=== PATIENT | male | born 1930 | race Caucasian/White ===

== ENCOUNTER 2016-09-22 10:23 | Inpatient (IN) ==
[2016-09-22] MEDS ORDERED: ZOFRAN IV PRN (12:47)
[2016-09-22] MEDS: DILAUDID IV PRN ×2 (13:38→20:24)
[2016-09-22] MEDS: NS 1,000 ML IV SCH (13:43)
--- NOTE | 2016-09-22 14:03 | Diag Imaging Result Doc PS360 ---
EXAM: FLAT/UPRIGHT ABD/1 VIEW CHEST HISTORY: abd pain TECHNIQUE: Three views COMPARISON: 06/24/2015 FINDINGS: The lungs are well expanded. No cardiomegaly. No change in the left subclavian portacatheter. No pneumonia. No pneumothorax. No free air beneath the diaphragm. There is stool throughout the colon. No organomegaly. Prior orthopedic replacement of the left hip. IMPRESSION: Constipation. Electronically signed by Alphonso Myers 09/22/2016 2:00 PM
[2016-09-22 14:25] LABS: BASO% 0.1 % (0.0-0.8); HEMATOCRIT 36.9 % (42.0-52.0); HEMOGLOBIN 12.5 g/dL (14.0-18.0); LYMPH# 0.48 X1000 (1.2-3.4); LYMPH% 3.3 % (20.5-51.1); MANUAL DIFF NEEDED? YES; MCH 34.8 PG (27-31); MCHC 33.9 g/dL (33-37); MCV 102.8 FL (81-99); MONO# 0.93 X1000 (0.11-0.59); MONO% 6.4 % (1.7-9.3); MPV 10.8 FL (7.4-10.4); NEUT% 90.2 % (42.2-75.2); PLT 260 X1000 (130-400); RBC 3.59 XMIL (4.7-6.1)
[2016-09-22 14:39] LABS: AGAP 11; ALBUMIN 4.9 g/dL (3.5-5.0); ALKALINE PHOSPHATASE 163 U/L (32-122); AMYLASE 38 U/L (20-200); BUN 17 mg/dL (8-22); CALCIUM 9.6 mg/dL (8.8-10.2); CHLORIDE 94 mmol/L (98-107); COSMO 274; GOT 35 U/L (10-34); GPT 30 U/L (10-44); LIPASE 23 U/L (13-60); POTASSIUM 4.1 mmol/L (3.5-5.1); SODIUM 135 mmol/L (136-145); TCO2 30 mmol/L (25-35); TOTAL BILIRUBIN 0.71 mg/dL (0.20-1.00); TOTAL PROTEIN 8.4 g/dL (6.3-8.3)
[2016-09-22 14:46] LABS: LYMPHS 3 % (21-51); MONO 1 % (1-9)
[2016-09-22] MEDS ORDERED: MIRALAX PO ONE (18:16)
[2016-09-22] MEDS ORDERED: DULCOLAX PO ONE ×2 (18:18→21:00)
[2016-09-22] MEDS ORDERED: SODIUM CHLORIDE 0.9% INJ SCH (18:30)
[2016-09-22] MEDS: LEVAQUIN 500 MG/D5W 500 MG/100 ML IVPB IV SCH (18:45)
[2016-09-22] MEDS: PEPCID IV SCH (18:45)
[2016-09-22 18:59] LABS: URINE CULTURE NEEDED? NO; URINE MICRO REVIEW NEEDED? NO; URINE SOURCE CATH
[2016-09-22 19:06] LABS: BILIRUBIN URINE NEGATIVE (NEGATIVE); BLOOD URINE TRACE (NEGATIVE); COLOR YELLOW; GLUCOSE URINE 150 mg/dL (NEGATIVE); LEUKOCYTES URINE NEGATIVE (NEGATIVE); NITRITE URINE NEGATIVE (NEGATIVE); PROTEIN URINE 100 mg/dL (NEGATIVE); SP GRAVITY URINE 1.016; TURBIDITY URINE CLEAR (CLEAR); UROBILINOGEN URINE NORMAL (NORMAL)
[2016-09-22 19:07] LABS: UR EPITHELIAL CELLS <10 /HPF (<10); URINE BACTERIA NEGATIVE /HPF; URINE RBC <10 /HPF (<10); URINE WBC <10 /HPF (<10)
[2016-09-22] MEDS ORDERED: APRESOLINE IV SCH (20:00)
--- NOTE | 2016-09-22 21:12 | HISTORY AND PHYSICAL ---
CHIEF COMPLAINT: Severe abdominal pain since last night. HISTORY OF PRESENT ILLNESS: He is an 85-year-old white gentleman who came to my office today with severe abdominal pain right upper quadrant associated with nausea, vomiting. He had a bowel movement yesterday. Belly exam no acute signs of peritonitis. He has been vomiting with bilious in my office. He has history of gallstones. He has been admitted to the hospital for the impending dehydration, evaluation of abdominal pain. After arrival he had a workup done. White cell count 14,000. Flat/upright of the abdomen with chest showed Port-A-Cath on the left side and distended bowel constipation. He also has a bladder scan distended. Marie was intermittent catheterization done. At this time the etiology to be determined. This could be gallstones or it could be constipation. As a result, he has been hospitalized. He was started on IV fluids, IV Zofran, Dulcolax and MiraLAX and also repeat ultrasound of the abdomen in the morning. As a result, hospital admission was warranted. PAST MEDICAL HISTORY: BPH, superficial bladder cancer, carcinoid syndrome, bronchial, metastatic, stable, diverticulosis, hypertension, hyperthyroidism, monoclonal gammopathy of unknown significance, osteoarthritis of joints, ulcerative colitis. PAST SURGICAL HISTORY: Appendectomy, left hip replacement, bilateral cataract surgery, status post TURP, right knee arthroplasty, Port-A-Cath on the left side. MEDICINES IN MY OFFICE: Celexa 20 mg daily, Proscar 5 mg daily, folic acid 1 mg daily, Icar-C Plus 1 tablet daily, Klonopin 0.5 at bedtime, lisinopril 10 mg daily, sulfasalazine 500 mg 2 tablets 3 times daily, Synthroid 100 mcg daily. ALLERGIES: Not known. SOCIAL HISTORY: , construction technician. No smoking. No alcohol. Living in [place]. FAMILY HISTORY: Father of heart failure at 70. Mom of stroke at 82. HEALTH MAINTENANCE: Flu vaccine 2015, pneumococcal 2013. Last prostate exam 2015. Colonoscopy [address] Sorenson. Care team is Dr. Robbins for carcinoid, Dr. Hussein for urology, Dr. Sorenson for GI. REVIEW OF SYSTEMS: HEENT: No headache. No vision problem. No earache. No sore throat. Neck: No goiter. No lymphadenopathy. No bruit. Cardiopulmonary: No chest pain, shortness of breath, PND, orthopnea or swelling of feet. GI: Upper abdominal pain, nausea, vomiting. No altered bowel habits. No bleeding per rectum. No diarrhea. : No history of hesitancy, frequency, dysuria, hematuria and no back pain. Neurologic: No weakness. Skin: No skin rashes. PHYSICAL EXAMINATION: VITAL SIGNS: He is afebrile, height 5 feet 7 inches, 150 pounds. Blood pressure is running high. HEENT: Atraumatic, normocephalic. Pupils equal, react to light. TMs are normal. Nose and throat within normal limits. NECK: Supple. No lymphadenopathy. No goiter. CHEST: Bilateral air entry. HEART: Sounds are regular. Port-A-Cath seen on the left side. ABDOMEN: Belly is soft, diffusely tender. No signs of peritonitis. RECTAL: Prostate is slightly enlarged. Heme-negative stool. EXTREMITIES: No peripheral edema or cyanosis. NEUROLOGIC: No obvious neurological deficits. INVESTIGATIONS: CBC: White cell count 14, hematocrit 36, platelet 260,000. SMA 7: Sodium 135, potassium 4.1, BUN 17, creatinine 0.7, glucose 144, AST slightly high, alkaline phosphatase slightly high. Total protein 8.4. Urinalysis is negative. Flat/upright of the abdomen with chest normal chest, constipation. ASSESSMENT AND PLAN: 1. An 85-year-old white gentleman presented to the hospital with upper abdominal pain, nausea, vomiting. Recently had an MRI of the abdomen that showed gallstones. Clinical picture is compatible with gallstones. Plan is IV fluids, NPO, except ice chips. Zofran, Dilaudid for pain. Repeat ultrasound of the abdomen. 2. Constipation on Dulcolax and MiraLAX. 3. Slightly elevated liver function tests and white cell count. IV antibiotics with Levaquin. 4. Hypertension. Since he is NPO, we will use IV hydralazine as needed. 5. Ulcerative colitis under the care of Dr. Sorenson on sulfasalazine. 6. Hypothyroidism on Synthroid. 7. Chronic anxiety on Klonopin. 8. History of benign prostatic hypertrophy status post transurethral resection of the prostate. Last prostate specific antigen was normal. 9. Bronchial carcinoid right upper lobe under the care of Dr. Martinez and Dr. Robbins. Recently had metastatic carcinoid syndrome. He had a Y90 radioembolization for liver metastases. 10. History of superficial bladder cancer, stable under the care of Dr. Hussein. 11. Recent workup for metastatic carcinoid syndrome is stable on 09/06/2016. Discussed the workup with the patient and and will follow up. cc: Mumtaz Luque MD
[2016-09-23] MEDS ORDERED: APRESOLINE IV PRN ×2 (00:50→07:50)
[2016-09-23] MEDS: NS 1,000 ML IV SCH ×2 (05:04→20:13)
[2016-09-23 07:05] LABS: BASO% 0.1 % (0.0-0.8); HEMATOCRIT 36.7 % (42.0-52.0); HEMOGLOBIN 12.4 g/dL (14.0-18.0); IMM GRAN# 0.09 X1000 (0.0-0.04); IMM GRAN% 0.4 % (0.0-0.5); LYMPH% 2.9 % (20.5-51.1); MANUAL DIFF NEEDED? YES; MCH 34.1 PG (27-31); MCHC 33.8 g/dL (33-37); MCV 100.8 FL (81-99); MONO# 3.56 X1000 (0.11-0.59); MONO% 17.3 % (1.7-9.3); MPV 10.9 FL (7.4-10.4); NEUT% 79.3 % (42.2-75.2); PLT 264 X1000 (130-400); RBC 3.64 XMIL (4.7-6.1)
[2016-09-23 07:22] LABS: AGAP 13; ALBUMIN 4.1 g/dL (3.5-5.0); ALKALINE PHOSPHATASE 127 U/L (32-122); BUN 18 mg/dL (8-22); CHLORIDE 97 mmol/L (98-107); COSMO 278; GOT 27 U/L (10-34); GPT 25 U/L (10-44); POTASSIUM 3.8 mmol/L (3.5-5.1); SODIUM 137 mmol/L (136-145); TCO2 27 mmol/L (25-35); TOTAL BILIRUBIN 0.95 mg/dL (0.20-1.00); TOTAL PROTEIN 7.2 g/dL (6.3-8.3)
--- NOTE | 2016-09-23 08:10 | Diag Imaging Result Doc PS360 ---
EXAM: US ABDOMEN-COMPLETE HISTORY: abdominal pain TECHNIQUE: COMPARISON: None. FINDINGS: The pancreas and distal aorta are obscured. Normal mid aorta. No focal hepatic abnormality. The gallbladder is partly contracted. No stones. The common bile duct measures 6 mm. A 2.9 cm cyst arises from the upper pole right kidney. No hydronephrosis. There is also 2.9 cm cyst in the upper pole of the left kidney. No hydronephrosis. The Spleen is not enlarged. No ascites. IMPRESSION: Scattered renal cysts, otherwise negative abdominal ultrasound. Electronically signed by Alphonso Myers 09/23/2016 8:08 AM
[2016-09-23 08:29] LABS: BANDS 6 % (0-1); LYMPHS 2 % (21-51); MONO 18 % (1-9)
--- NOTE | 2016-09-23 08:43 | Diag Imaging Result Doc PS360 ---
EXAM: ABDOMEN FLAT/UPRIGHT HISTORY: pain TECHNIQUE: COMPARISON: 09/22/2016 FINDINGS: Stool remains in the proximal and distal colon. The bowel loops are not dilated. No organomegaly. Prior orthopedic replacement of the left hip. Mild to moderate degenerative changes throughout the lumbar spine. Mild arthritic changes to the right hip. IMPRESSION: Constipation remains. Electronically signed by Alphonso Myers 09/23/2016 8:41 AM
[2016-09-23] MEDS: DILAUDID IV PRN ×2 (09:02→20:13)
[2016-09-23] MEDS: PEPCID IV SCH ×2 (09:07→20:13)
--- NOTE | 2016-09-23 10:46 | Diag Imaging Result Doc PS360 ---
CT ABD/PELVIS W/ IV CONT ONLY - 09/23/2016 INDICATION: Abdominal pain TECHNIQUE: A CT dose reduction protocol was used. COMPARISON: 09/05/2016 FINDINGS: There is some trace dependent atelectasis in the posterior costophrenic angles. There is a small amount of ascites. There has been minimal increase in size of the left adrenal mass. This now measures 2.8 cm. Stable renal cysts. Stable irregular contour of the liver particularly at the gallbladder fossa. Stable severe atrophy of the pancreatic neck. No peripancreatic collections. The spleen is normal. There is asymmetric wall thickening at the anterior urinary bladder concerning for malignancy. This measures up to 1 cm in thickness. There is severe diverticulosis of the sigmoid colon. No bowel obstruction or inflammation. No hydronephrosis or hydroureter. There is a left total hip prosthesis. There is severe degeneration of the spine and pelvis. No acute or destructive bony lesions. IMPRESSION: 1. Minimal increase in size of left adrenal nodule. 2. Trace ascites. 3. Suspicious urinary bladder mass. Further evaluation recommended. 4. Diverticulosis coli. Electronically signed by Juno Ponce 09/23/2016 10:44 AM
[2016-09-23 11:18] LABS: URINE MICRO REVIEW NEEDED? NO; URINE SOURCE CATH
[2016-09-23 11:25] LABS: BILIRUBIN URINE NEGATIVE (NEGATIVE); BLOOD URINE NEGATIVE (NEGATIVE); COLOR YELLOW; GLUCOSE URINE 70 mg/dL (NEGATIVE); LEUKOCYTES URINE TRACE (NEGATIVE); NITRITE URINE NEGATIVE (NEGATIVE); PROTEIN URINE 100 mg/dL (NEGATIVE); SP GRAVITY URINE 1.023; TURBIDITY URINE CLEAR (CLEAR); UR EPITHELIAL CELLS <10 /HPF (<10); URINE BACTERIA NEGATIVE /HPF; URINE CULTURE NEEDED? YES; URINE RBC <10 /HPF (<10); URINE WBC <10 /HPF (<10); UROBILINOGEN URINE NORMAL (NORMAL)
[2016-09-23] MEDS: LACTULOSE PO SCH ×2 (13:46→20:13)
--- NOTE | 2016-09-23 17:08 | Diag Imaging Result Doc PS360 ---
HIDA SCAN W/O EJECT. FRACTION - 09/23/2016 INDICATION: rule out cholecystitis TECHNIQUE: 4.1 mCi of Choletec was administered COMPARISON: CT from 09/23/2016 FINDINGS: There is normal uptake and clearance by the liver. There is good excretion into the biliary collecting ducts and the small bowel. There was never any activity in the gallbladder. IMPRESSION: Nonvisualization of the gallbladder. This may represent acute cholecystitis, versus a very abnormal gallbladder with chronic cholecystitis. Since there is fluid centered at the gallbladder fossa on the recent CT, acute cholecystitis is suggested. Electronically signed by Juno Ponce 09/23/2016 5:06 PM
[2016-09-23] MEDS ORDERED: DULCOLAX PR ONE (17:30)
--- NOTE | 2016-09-23 17:36 | PROGRESS NOTE ---
DATE: 09/23/2016 SUBJECTIVE: The patient complains of diffuse abdominal pain, not able to pee. Bladder scan showed 250 mL of urine. He has not had a good bowel movement. The patient had a flat and upright of the abdomen today, as well as ultrasound findings were noted. Continues to have right upper quadrant pain, nausea. Complains of neck pain now. REVIEW OF SYSTEMS: Abdominal pain, nausea. OBJECTIVE: Vial Signs: On examination, a low-grade fever. Blood pressure is high. HEENT: Within normal limits. Neck: Supple. Chest: Clear to auscultation. Heart: Sounds are regular. Port on the left side. Abdomen: Belly is soft, slightly tender, and no acute signs of peritonitis. Extremities: No peripheral edema, cyanosis. Neurological: No obvious neurological deficits. INVESTIGATIONS: White cell count 20, hematocrit 36, platelets 264,000. SMA-7: Sodium 137, potassium 3.8, chloride 97, BUN 18, creatinine 0.7, glucose 132. LFTs were normal. Urinalysis is clear. Urine cultures are pending. ASSESSMENT AND PLAN: 1. Nausea and upper abdominal pain, suspicious for gallbladder disease. Previous MRI report showed possible gallstone, but recent ultrasound is negative. Consider HIDA scan, CT of the abdomen and pelvis. 2. Elevated white cell count, suspicious for possible cholecystitis. Continue on IV Levaquin and Zofran. 3. Superficial bladder cancer, stable, under the care of Long Hussein MD. 4. Benign prostatic hypertrophy and Marie catheter. 5. Surgical consult with Dr. Niño discussed. 6. Hypertension. We will use the hydralazine as needed. 7. Follow up on HIDA scan results and further recommendations will follow. LEVEL OF DOCUMENTATION: 25 minutes. cc: Mumtaz Luque MD MTDD
[2016-09-23] MEDS: LEVAQUIN 500 MG/D5W 500 MG/100 ML IVPB IV SCH (17:41)
[2016-09-23] MEDS ORDERED: FLEET ENEMA PR ONE (21:00)
[2016-09-24] MEDS: NS 1,000 ML IV SCH (05:37)
[2016-09-24 06:58] LABS: BASO% 0.1 % (0.0-0.8); HEMATOCRIT 37.3 % (42.0-52.0); HEMOGLOBIN 12.6 g/dL (14.0-18.0); IMM GRAN% 0.4 % (0.0-0.5); INR 1.19; LYMPH# 0.96 X1000 (1.2-3.4); LYMPH% 4.1 % (20.5-51.1); MANUAL DIFF NEEDED? NO; MCH 34.6 PG (27-31); MCHC 33.8 g/dL (33-37); MCV 102.5 FL (81-99); MONO# 3.52 X1000 (0.11-0.59); MONO% 14.9 % (1.7-9.3); NEUT% 80.5 % (42.2-75.2); PLT 238 X1000 (130-400); PROTIME 12.6 Seconds (9.2-11.7); RBC 3.64 XMIL (4.7-6.1)
[2016-09-24 07:12] LABS: AGAP 13; ALBUMIN 3.8 g/dL (3.5-5.0); ALKALINE PHOSPHATASE 122 U/L (32-122); BUN 20 mg/dL (8-22); CALCIUM 8.9 mg/dL (8.8-10.2); CHLORIDE 101 mmol/L (98-107); COSMO 284; GOT 23 U/L (10-34); GPT 24 U/L (10-44); POTASSIUM 3.7 mmol/L (3.5-5.1); SODIUM 140 mmol/L (136-145); TCO2 26 mmol/L (25-35); TOTAL BILIRUBIN 1.23 mg/dL (0.20-1.00); TOTAL PROTEIN 6.7 g/dL (6.3-8.3)
[2016-09-24] MEDS ORDERED: HURRICAINE SPRAY (DOSE) ONE (07:33)
[2016-09-24] MEDS: DILAUDID IV PRN (07:39)
[2016-09-24] MEDS ORDERED: ZOFRAN ONE (07:41)
[2016-09-24] MEDS ORDERED: ROBINUL ONE ×2 (07:41→10:08)
[2016-09-24] MEDS ORDERED: ZEMURON ONE (07:41)
[2016-09-24] MEDS ORDERED: QUELICIN (DOSE) ONE (07:41)
[2016-09-24] MEDS ORDERED: XYLOCAINE-MPF 2% ONE (07:42)
[2016-09-24] MEDS ORDERED: DIPRIVAN 1% ONE (07:43)
[2016-09-24] MEDS ORDERED: FENTANYL ONE (07:43)
[2016-09-24] MEDS ORDERED: TYLENOL PR PRN ×2 (08:32→12:45)
[2016-09-24] MEDS: PEPCID IV SCH (09:22)
[2016-09-24] MEDS ORDERED: MARCAINE 0.25% PF/EPI 1:200,000 ONE (09:52)
[2016-09-24] MEDS ORDERED: LR 1,000 ML ONE (09:53)
[2016-09-24] MEDS ORDERED: SODIUM CHLORIDE 0.9% ONE (09:53)
[2016-09-24] MEDS ORDERED: NEOSTIGMINE ONE (10:07)
[2016-09-24] MEDS ORDERED: D5 1/2 NS + KCL 20 MEQ 1,000 ML ONE (11:43)
[2016-09-24] MEDS: MORPHINE ONE ×2 (11:45→11:50)
[2016-09-24] MEDS: LACTULOSE PO SCH (12:21)
[2016-09-24] MEDS ORDERED: ZOFRAN IV PRN (12:43)
[2016-09-24] MEDS ORDERED: TYLENOL PO PRN (12:45)
[2016-09-24] MEDS: PROTONIX IV SCH (13:26)
[2016-09-24] MEDS: SODIUM CHLORIDE 0.9% INJ SCH (13:27)
[2016-09-24] MEDS: MORPHINE IV PRN ×3 (13:27→23:49)
--- NOTE | 2016-09-24 14:20 | OPERATIVE NOTE ---
PROCEDURE DATE: 09/24/2016 PREOPERATIVE DIAGNOSIS: Acute cholecystitis. POSTOPERATIVE DIAGNOSIS: Acute gangrenous cholecystitis with necrotic gallbladder. PROCEDURE: Laparoscopic cholecystectomy, attempted cholangiogram. Culture and cytology of ascitic fluid, culture and sensitivity of the gallbladder. DESCRIPTION OF PROCEDURE: The patient was brought to the operating room. After satisfactory induction of IV and endotracheal anesthesia, athrombic TEDs were placed. His Marie catheter was already in position. His abdomen was broadly prepped and draped in the appropriate manner for laparoscopy. Initially, the infraumbilical area was infiltrated with 0.25% Marcaine with epinephrine. Dissection was taken sharply down through skin and subcutaneous tissue. The fascia was tacked with 0 Surgilon and incised. Under direct visualization, a Yves trocar was placed. The abdomen was insufflated to 3-1/2 L of carbon dioxide. On introduction of the camera, there was seen to be bile ascites in the right epigastrium. One 10 and two 5 mm trocars were placed after infiltration of Marcaine with epinephrine and a 10 mm trocar was placed in the left lower quadrant for fan retractor. The ascitic fluid was aspirated and sent for routine cytology as well as culture and sensitivity. The patient has a history of carcinoid tumor with metastatic disease to the liver as well as carcinoma of the bladder. On visualization of the gallbladder it was seen to be acutely inflamed, and necrotic with weeping of purulent tissue. The patient was repositioned. The gallbladder was grasped and retracted superiorly. The hilar structures were dissected. Attempted cystic duct cholangiogram was unsuccessful secondary to the necrotic nature of the duct. Catheter was subsequently removed. The duct was doubly clipped and divided as best as possible and the cystic artery was doubly clipped and divided as well. The gallbladder was subsequently dissected from the liver bed with the use of the monopolar scissors, freed up, placed in an EndoCatch bag and removed. Routine anaerobic and aerobic cultures were obtained of the gallbladder as well. Reinspection of the liver bed revealed small bleeding points that were controlled by electrocautery or Surgicel gauze. A Boy-Garcia drain was threaded in the right subphrenic space and brought out through the right lateral trocar incision and anchored with 0 Surgilon and hooked to suction. All trocars were subsequently removed. The subumbilical incision underwent fascial closures of 0 Surgilon. All skin incisions were closed with stainless steel clips. Sterile dressings were applied. The patient was awakened and extubated in the operating room and transferred to recovery. Estimated blood loss was at least 100 mL. He will be monitored in intensive care unit with the guarded prognosis secondary to the severity of the gallbladder disease as well as the 2 known primary malignancies. cc: MD Mumtaz Rodriguez MD
[2016-09-24] MEDS ORDERED: APRESOLINE IV PRN (14:50)
[2016-09-24] MEDS: LEVAQUIN 500 MG/D5W 500 MG/100 ML IVPB IV SCH (18:41)
--- NOTE | 2016-09-24 21:30 | PROGRESS NOTE ---
DATE: 09/24/2016 SUBJECTIVE: 85-year-old white gentleman admitted with abdominal pain, nausea, vomiting. The patient does have complex medical history. Admission history and physical noted. The patient's CT scan results reviewed. The patient underwent HIDA scan and his ejection fraction was 0. Patient underwent laparoscopic cholecystectomy. Patient tolerated procedure fairly well. The patient was admitted to ICU. The patient is doing fair. The patient is alert, awake but at times confused. Admission history, physical, surgical consult, CT scan results reviewed. PAST MEDICAL HISTORY: Significant for bladder cancer, BPH, hypertension, carcinoid tumor, osteoarthritis, monoclonal gammopathy, ulcerative colitis, hyperthyroidism. The patient had appendectomy, left hip replacement, status post TURP right knee arthroplasty. PHYSICAL EXAMINATION: Vital signs: Noted. Neck: Supple. No JVD. Lungs: Bilateral air entry present. Few basal crepitations. CVS: S1 and S2 heard. Abdomen: Soft, globular. Bowel sounds present. Mild soreness. Extremities: No cyanosis, clubbing. No acute DVT. CHIEF WHEELAGE CLERK: The patient is awake, able to move all 4 limbs but uncooperative for detailed neurologic examination. LAB DATA: Done revealed leukocytosis with left shift. Platelet count was 238,000. PT/INR 1.19, PTT 37.2. Electrolytes fairly benign. Blood sugar 130, bilirubin 1.23. CONSIDERATION: Acute gangrenous cholecystitis status post cholecystectomy. Carcinoid tumor with metastasis to bronchus. Bladder tumor. BPH. Leukocytosis. Hypertension. We are going to monitor the patient in the ICU, continue current treatment. The patient is on Levaquin. I am going to add Zosyn. Close observation. cc: MD Mumtaz Davila MD
[2016-09-24] MEDS: ZOSYN 3.375 GM/NS 3.375 GM/50 ML IVPB IV SCH (22:38)
[2016-09-25] MEDS: MORPHINE IV PRN ×4 (02:20→23:15)
[2016-09-25] MEDS: D5 1/2 NS + KCL 20 MEQ 1,000 ML IV SCH ×2 (02:24→15:18)
[2016-09-25] MEDS: ZOSYN 3.375 GM/NS 3.375 GM/50 ML IVPB IV SCH (03:59)
[2016-09-25 05:44] LABS: MANUAL DIFF NEEDED? NO
[2016-09-25 05:50] LABS: BASO% 0.1 % (0.0-0.8); EOS# 0.01 X1000 (0.0-0.7); EOS% 0.1 % (0.0-10.0); HEMATOCRIT 34.9 % (42.0-52.0); HEMOGLOBIN 11.4 g/dL (14.0-18.0); IMM GRAN# 0.05 X1000 (0.0-0.04); IMM GRAN% 0.3 % (0.0-0.5); LYMPH# 0.55 X1000 (1.2-3.4); LYMPH% 2.9 % (20.5-51.1); MCH 33.6 PG (27-31); MCHC 32.7 g/dL (33-37); MCV 102.9 FL (81-99); MONO# 2.49 X1000 (0.11-0.59); MONO% 13.1 % (1.7-9.3); MPV 11.1 FL (7.4-10.4); NEUT% 83.5 % (42.2-75.2); PLT 188 X1000 (130-400); RBC 3.39 XMIL (4.7-6.1)
[2016-09-25 06:10] LABS: AGAP 11; ALKALINE PHOSPHATASE 101 U/L (32-122); BUN 17 mg/dL (8-22); CHLORIDE 103 mmol/L (98-107); COSMO 283; GOT 39 U/L (10-34); GPT 39 U/L (10-44); POTASSIUM 3.9 mmol/L (3.5-5.1); SODIUM 140 mmol/L (136-145); TCO2 26 mmol/L (25-35); TOTAL BILIRUBIN 1.54 mg/dL (0.20-1.00); TOTAL PROTEIN 5.7 g/dL (6.3-8.3)
--- NOTE | 2016-09-25 08:50 | Diag Imaging Result Doc PS360 ---
CHEST-PORTABLE - 09/25/2016 INDICATION: post op TECHNIQUE: COMPARISON: 09/22/2016 FINDINGS: Stable left chest port. Lung volumes are much lower with significant central atelectasis. Accounting for this, no significant infiltrates. Heart size and pulmonary vascularity is normal. IMPRESSION: Severely low lung volumes. Otherwise no acute disease or change from prior. Electronically signed by Juno Ponce 09/25/2016 8:48 AM
[2016-09-25] MEDS: CUBICIN (FOR INPATIENT USE) 600 MG in NS 100 ML IV SCH (11:05)
[2016-09-25] MEDS: SODIUM CHLORIDE 0.9% INJ SCH (12:19)
[2016-09-25] MEDS: PROTONIX IV SCH (12:19)
--- NOTE | 2016-09-25 12:55 | PROGRESS NOTE ---
DATE: 09/25/2016 SUBJECTIVE: Mr. Bee underwent a laparoscopic cholecystectomy yesterday. Found to have gangrenous cholecystitis. The patient tolerated the procedure well. The patient is doing better. Complaining of abdominal pain. No nausea or vomiting. No chest pain. The patient denied any high-grade fever or chills. Blood pressure at times staying high. OBJECTIVE: Vital signs: Noted. Neck: Supple. No JVD. Lungs: Bibasilar crepitations. Heart: S1 and S2 heard. Abdomen: Soft, globular. Bowel sounds present. The patient does have tenderness upper abdomen and soreness. No guarding or rigidity. Extremities: No cyanosis, clubbing. No acute DVT. SOFTWARE TEST MANAGER: Alert, awake. Able to move all 4 limbs. LAB DATA: Done today, WBC count 18.94, improving. Hemoglobin 11.4, hematocrit 34.9, platelet count 188,000. Electrolytes fairly benign. Bilirubin 1.54. CONSIDERATION: 1. Acute gangrenous cholecystitis, status post cholecystectomy. 2. Hypertension. 3. Patient does have a history of carcinoid tumor. 4. Bladder cancer. PLAN: Chest x-ray done today did reveal severely low lung volume. We will encourage incentive spirometry. Continue the rest of the treatment. Close observation. cc: MD Mumtaz Davila MD
[2016-09-25] MEDS: LOVENOX SUBQ SCH (15:18)
[2016-09-25] MEDS: LEVAQUIN 500 MG/D5W 500 MG/100 ML IVPB IV SCH (17:53)
[2016-09-26] MEDS: D5 1/2 NS + KCL 20 MEQ 1,000 ML IV SCH ×2 (05:28→17:47)
[2016-09-26 05:57] LABS: MANUAL DIFF NEEDED? NO
[2016-09-26 06:23] LABS: AGAP 8; ALBUMIN 2.4 g/dL (3.5-5.0); ALKALINE PHOSPHATASE 104 U/L (32-122); BASO% 0.1 % (0.0-0.8); BUN 16 mg/dL (8-22); CALCIUM 7.9 mg/dL (8.8-10.2); CHLORIDE 103 mmol/L (98-107); COSMO 276; EOS# 0.05 X1000 (0.0-0.7); EOS% 0.5 % (0.0-10.0); GOT 22 U/L (10-34); GPT 31 U/L (10-44); HEMOGLOBIN 10.2 g/dL (14.0-18.0); IMM GRAN# 0.02 X1000 (0.0-0.04); IMM GRAN% 0.2 % (0.0-0.5); LYMPH# 0.59 X1000 (1.2-3.4); LYMPH% 5.8 % (20.5-51.1); MCH 34.1 PG (27-31); MCHC 32.9 g/dL (33-37); MCV 103.7 FL (81-99); MONO# 1.66 X1000 (0.11-0.59); MONO% 16.2 % (1.7-9.3); MPV 11.2 FL (7.4-10.4); NEUT% 77.2 % (42.2-75.2); PLT 179 X1000 (130-400); POTASSIUM 3.8 mmol/L (3.5-5.1); RBC 2.99 XMIL (4.7-6.1); SODIUM 137 mmol/L (136-145); TCO2 26 mmol/L (25-35); TOTAL PROTEIN 5.1 g/dL (6.3-8.3)
[2016-09-26] MEDS: CUBICIN (FOR INPATIENT USE) 600 MG in NS 100 ML IV SCH (10:50)
[2016-09-26] MEDS: PROTONIX IV SCH (11:45)
[2016-09-26] MEDS: SODIUM CHLORIDE 0.9% INJ SCH (11:46)
[2016-09-26] MEDS: VITAMIN D PO SCH (11:50)
[2016-09-26] MEDS: MORPHINE IV PRN ×2 (11:51→20:10)
[2016-09-26] MEDS: SYNTHROID PO SCH (11:51)
[2016-09-26] MEDS: PROSCAR PO SCH (11:51)
[2016-09-26] MEDS: CELEXA PO SCH (11:51)
[2016-09-26] MEDS: CENTRUM SILVER PO SCH (11:51)
[2016-09-26] MEDS: ANTIVERT PO SCH ×2 (13:28→16:24)
[2016-09-26] MEDS: AZULFIDINE PO SCH ×2 (13:28→20:11)
[2016-09-26] MEDS: LOVENOX SUBQ SCH (16:24)
[2016-09-26] MEDS: LEVAQUIN 500 MG/D5W 500 MG/100 ML IVPB IV SCH (17:47)
--- NOTE | 2016-09-26 19:48 | PROGRESS NOTE ---
DATE: 09/26/2016 SUBJECTIVE: Even noted over the weekend, HIDA scan was positive. CT findings were noted. Patient was seen by Dr. Niño. He did a laparoscopic cholecystectomy. The gallbladder was gangrenous. He was in ICU and transferred to the ICU in a stable condition. This morning he is doing very well. He has less pain. Is trying to eat some breakfast. He still has a TONE drain. REVIEW OF SYSTEMS: Rest of the review of systems are normal. PHYSICAL EXAMINATION: Vital Signs: Stable, 92%. HEENT: Within normal limits. Neck: Supple. No lymphadenopathy. Chest: Clear. Heart: Sounds are regular. Abdomen: Belly is soft, less tender. Neurologic: No neurological deficits. INVESTIGATIONS: CBC: White cell count 10, hematocrit 31, platelet 179,000. SMA 7: Sodium 137, potassium 3.8, chloride 103. BUN 16, creatinine 0.7, glucose 7.9. LFTs were normal. ASSESSMENT AND PLAN: 1. Status post laparoscopic cholecystectomy for gangrenous gallbladder. Advance the diet. A CBC is coming back normal. 2. Once he tolerates, will decrease the IV fluids and continue perioperative antibiotics, daptomycin and Levaquin. 3. History of ulcerative colitis on sulfasalazine. 4. History of metastatic carcinoid, stable. 5. History of superficial bladder cancer, stable. 6. Hypothyroidism. On Synthroid. 7. Deep venous thrombosis prophylaxis on Lovenox. We will decrease the dose to 40 mg subcutaneous daily. LEVEL OF DOCUMENTATION: Is 35 minutes. cc: Mumtaz Luque MD MTDD
[2016-09-26] MEDS: KLONOPIN PO SCH (20:16)
[2016-09-27] MEDS: D5 1/2 NS + KCL 20 MEQ 1,000 ML IV SCH ×2 (00:34→06:52)
[2016-09-27] MEDS: MORPHINE IV PRN ×2 (01:03→05:02)
[2016-09-27 06:28] LABS: MANUAL DIFF NEEDED? NO
[2016-09-27 06:30] LABS: BASO% 0.1 % (0.0-0.8); EOS# 0.11 X1000 (0.0-0.7); EOS% 1.3 % (0.0-10.0); HEMATOCRIT 30.8 % (42.0-52.0); HEMOGLOBIN 10.1 g/dL (14.0-18.0); IMM GRAN# 0.04 X1000 (0.0-0.04); IMM GRAN% 0.5 % (0.0-0.5); LYMPH# 0.67 X1000 (1.2-3.4); MCH 33.6 PG (27-31); MCHC 32.8 g/dL (33-37); MCV 102.3 FL (81-99); MONO# 1.58 X1000 (0.11-0.59); MONO% 18.9 % (1.7-9.3); NEUT% 71.2 % (42.2-75.2); PLT 176 X1000 (130-400); RBC 3.01 XMIL (4.7-6.1)
[2016-09-27 06:51] LABS: AGAP 7; ALBUMIN 2.6 g/dL (3.5-5.0); ALKALINE PHOSPHATASE 213 U/L (32-122); BUN 10 mg/dL (8-22); CALCIUM 8.2 mg/dL (8.8-10.2); CHLORIDE 102 mmol/L (98-107); COSMO 276; GOT 39 U/L (10-34); GPT 42 U/L (10-44); POTASSIUM 4.2 mmol/L (3.5-5.1); SODIUM 138 mmol/L (136-145); TCO2 29 mmol/L (25-35); TOTAL BILIRUBIN 1.65 mg/dL (0.20-1.00); TOTAL PROTEIN 5.5 g/dL (6.3-8.3)
[2016-09-27] MEDS: ANTIVERT PO SCH ×3 (08:45→17:44)
[2016-09-27] MEDS: AZULFIDINE PO SCH ×4 (08:45→21:54)
[2016-09-27] MEDS: SYNTHROID PO SCH (08:46)
[2016-09-27] MEDS: CELEXA PO SCH (08:46)
[2016-09-27] MEDS: CUBICIN (FOR INPATIENT USE) 600 MG in NS 100 ML IV SCH (08:46)
[2016-09-27] MEDS: CENTRUM SILVER PO SCH (08:46)
[2016-09-27] MEDS: PROSCAR PO SCH (08:46)
[2016-09-27] MEDS: VITAMIN D PO SCH (08:54)
[2016-09-27] MEDS: SODIUM CHLORIDE 0.9% INJ SCH (13:49)
[2016-09-27] MEDS: PROTONIX IV SCH (13:49)
[2016-09-27] MEDS: LOVENOX SUBQ SCH ×2 (15:06→15:12)
--- NOTE | 2016-09-27 15:14 | Diag Imaging Result Doc PS360 ---
EXAM: HIDA SCAN W/O EJECT. FRACTION HISTORY: possible bile leak TECHNIQUE: Intravenous injection of 5.1 mCi of technetium 99m Choletec COMMENT: There is uptake by the liver and excretion into the biliary system with activity apparently in the duodenum by 25 minutes. The study was somewhat impaired by patient motion. No apparent extrabiliary activity is demonstrated. IMPRESSION: No evidence of bile leak. Electronically signed by Tanner Pemberton 09/27/2016 3:11 PM
[2016-09-27] MEDS: ATIVAN IV PRN (16:40)
[2016-09-27] MEDS: LEVAQUIN 500 MG/D5W 500 MG/100 ML IVPB IV SCH (17:44)
[2016-09-27] MEDS: THIAMINE IM SCH ×2 (17:44→18:30)
--- NOTE | 2016-09-27 18:45 | PROGRESS NOTE ---
DATE: 09/27/2016 SUBJECT: The family was there at the bedside. He is doing very well. He is eating very well. He is not offering complaints. TONE drain showed a quite a bit drainage. REVIEW OF SYSTEMS: None reported. PHYSICAL EXAMINATION: Vital signs: Afebrile and blood pressure is stable. HEENT: Within normal limits. Neck: Supple. Port-A-Cath on the left side. Belly: Soft. TONE drain present. Extremities: No peripheral edema. Neurologic: No neurological deficits. INVESTIGATIONS: CBC: White cell count 8.3, hematocrit 31, platelets 176,000. SMA 7, sodium 138, potassium 4.2, chloride 102, BUN 10, creatinine 0.7, glucose 130, calcium 8.2, total bilirubin 1.6, AST, ALT slightly elevated. Urinalysis is clear. ASSESSMENT AND PLAN: 1. Elevated liver function tests probably from the carcinoid. The patient is going for a HIDA scan for bile leak as per Dr. Niño. Continue on daptomycin and Levaquin. White cell count is normal. 2. Deep vein thrombosis prophylaxis with Lovenox. 3. Since the patient is eating very well discontinue IV fluids and based on the HIDA scan further recommendations will be followed. The patient's concerned about Sandostatin. Will reschedule next week Dr. Robbins's office and discussed with the son and the at the bedside. LEVEL OF DOCUMENTATION: 25 minutes. cc: Mumtaz Luque MD
[2016-09-27] MEDS: KLONOPIN PO SCH (21:53)
[2016-09-28 05:45] LABS: MANUAL DIFF NEEDED? NO
[2016-09-28 06:22] LABS: BASO% 0.3 % (0.0-0.8); EOS# 0.11 X1000 (0.0-0.7); HEMATOCRIT 33.6 % (42.0-52.0); HEMOGLOBIN 11.1 g/dL (14.0-18.0); IMM GRAN# 0.09 X1000 (0.0-0.04); IMM GRAN% 0.8 % (0.0-0.5); LYMPH# 0.49 X1000 (1.2-3.4); LYMPH% 4.5 % (20.5-51.1); MCH 33.4 PG (27-31); MCV 101.2 FL (81-99); MONO% 16.4 % (1.7-9.3); MPV 10.8 FL (7.4-10.4); PLT 212 X1000 (130-400); RBC 3.32 XMIL (4.7-6.1)
[2016-09-28 06:43] LABS: AGAP 10; ALKALINE PHOSPHATASE 228 U/L (32-122); BUN 10 mg/dL (8-22); CALCIUM 8.6 mg/dL (8.8-10.2); CHLORIDE 100 mmol/L (98-107); COSMO 279; GOT 27 U/L (10-34); GPT 37 U/L (10-44); POTASSIUM 4.6 mmol/L (3.5-5.1); SODIUM 140 mmol/L (136-145); TCO2 30 mmol/L (25-35); TOTAL BILIRUBIN 1.83 mg/dL (0.20-1.00); TOTAL PROTEIN 6.4 g/dL (6.3-8.3)
[2016-09-28] MEDS: SEROQUEL PO SCH ×2 (07:46→22:27)
[2016-09-28] MEDS: CUBICIN (FOR INPATIENT USE) 600 MG in NS 100 ML IV SCH (09:35)
[2016-09-28] MEDS: AZULFIDINE PO SCH ×4 (11:28→22:27)
[2016-09-28] MEDS: PROSCAR PO SCH (12:17)
[2016-09-28] MEDS: ANTIVERT PO SCH ×3 (12:17→17:13)
[2016-09-28] MEDS: CELEXA PO SCH (12:17)
[2016-09-28] MEDS: VITAMIN D PO SCH (12:18)
[2016-09-28] MEDS: SYNTHROID PO SCH (12:18)
[2016-09-28] MEDS: THIAMINE IM SCH (12:18)
[2016-09-28] MEDS: CENTRUM SILVER PO SCH (12:18)
[2016-09-28] MEDS: PROTONIX IV SCH (12:19)
[2016-09-28] MEDS: SODIUM CHLORIDE 0.9% INJ SCH (12:19)
[2016-09-28] MEDS: LEVAQUIN 500 MG/D5W 500 MG/100 ML IVPB IV SCH ×2 (17:13→18:52)
[2016-09-28] MEDS: LOVENOX SUBQ SCH (17:13)
--- NOTE | 2016-09-28 19:25 | PROGRESS NOTE ---
DATE: 09/28/2016 SUBJECTIVE: Last night patient was confused, requiring sedatives. IV fluids were out. Patient has a HIDA scan. There was no bile leak. TONE drain was still. REVIEW OF SYSTEMS: None reported. This morning he is lucid. PHYSICAL EXAMINATION: Vital signs: Afebrile. Vitals are stable. Input and output are positive 540. HEENT: Within normal limits. Chest: Clear. Heart: Sounds are regular. Abdomen: Belly is soft, nontender. Good bowel sounds. No masses palpable. INVESTIGATION: CBC: White cell count 10, hematocrit 33, platelets 212,000. SMA7 is normal. Elevated bilirubin. Vitamin B12 is normal. Urine cultures, blood cultures were negative. Pathology report is consistent with cholelithiasis, extensive necrosis of the gallbladder. ASSESSMENT AND PLAN: 1. Status post laparoscopic cholecystectomy. No bile leak. Slowly improving. 2. Altered mental status due to delirium. Continue on Ativan as needed. Currently stable. If Dr. Niño agrees, will be ready to be discharged and will discharge in the morning. LEVEL OF DOCUMENTATION: 25 minutes. cc: Mumtaz Luque MD
[2016-09-28] MEDS: KLONOPIN PO SCH (22:26)
[2016-09-29] MEDS ORDERED: DULCOLAX PR ONE (08:04)
[2016-09-29] MEDS: CUBICIN (FOR INPATIENT USE) 600 MG in NS 100 ML IV SCH ×2 (08:35→11:39)
[2016-09-29] MEDS: THIAMINE IM SCH (08:36)
[2016-09-29] MEDS: PROSCAR PO SCH (08:36)
[2016-09-29] MEDS: AZULFIDINE PO SCH ×3 (08:36→21:06)
[2016-09-29] MEDS: VITAMIN D PO SCH (08:36)
[2016-09-29] MEDS: CENTRUM SILVER PO SCH (08:36)
[2016-09-29] MEDS: CELEXA PO SCH (08:36)
[2016-09-29] MEDS: SYNTHROID PO SCH (08:36)
[2016-09-29] MEDS: ANTIVERT PO SCH ×3 (08:36→18:30)
[2016-09-29] MEDS ORDERED: FLEET ENEMA PR PRN (12:00)
[2016-09-29] MEDS: PROTONIX IV SCH (12:59)
[2016-09-29] MEDS: SODIUM CHLORIDE 0.9% INJ SCH (12:59)
[2016-09-29] MEDS: ATIVAN IV PRN (17:02)
[2016-09-29] MEDS: LEVAQUIN 500 MG/D5W 500 MG/100 ML IVPB IV SCH (21:05)
[2016-09-29] MEDS: KLONOPIN PO SCH (21:05)
[2016-09-29] MEDS: SEROQUEL PO SCH (21:06)
[2016-09-29] MEDS: LOVENOX SUBQ SCH (21:08)
[2016-09-30 04:15] VITALS: BP 168/74
--- NOTE | 2016-09-30 05:01 | PROGRESS NOTE ---
DATE: 09/29/2016 SUBJECTIVE: I had examined the patient this morning with family members. Patient is doing very well. TONE drain is out. Eating well. Patient is more alert. No complaints. His mental status is lucid. PHYSICAL EXAMINATION: Vital Signs: Afebrile. Vitals are stable. HEENT: Within normal limits. Neck: Supple. No lymphadenopathy. No goiter. Chest: Clear. Heart: Sounds are regular. Abdomen: Belly is soft, nontender. Good bowel sounds. No masses palpable. No neurological deficits. All of the cultures were negative. ASSESSMENT AND PLAN: Status post laparoscopic cholecystectomy. Doing very well. Laboratory data was unremarkable. Mental status delirium resolving. I did advise the patient to go home with outpatient home healthcare. That is what the patient's wants to do. However, patient's son is adamant to send him home for rehab for 21 days. Initial plan was discharge home, with outpatient home health care. Later on, the son decided to go for rehab. I did discuss with the social security benefits interviewer. Waiting for placement tomorrow. We will do the paperwork in the morning. LEVEL OF DOCUMENTATION: 25 minutes spent. cc: Mumtaz Luque MD
--- NOTE | 2016-09-30 10:20 | DISCHARGE SUMMARY ---
ADMISSION DATE: 09/22/2016 DISCHARGE DATE: DISCHARGING DIAGNOSIS: Abdominal pain due to acalculous cholecystitis with gallstones. SECONDARY DIAGNOSES: 1. Altered mental status due to delirium. 2. Benign prostatic hypertrophy. 3. Superficial bladder cancer. 4. 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 5. Diverticulosis. 6. Hypertension. 7. Hypothyroidism. 8. Monoclonal gammopathy of unknown significance. 9. Ulcerative colitis. 10. Osteoarthritis. CONSULTANTS: Joaquín Niño MD PROCEDURES: Laparoscopic cholecystectomy. RADIOLOGY PROCEDURES: 1. HIDA scan. Nonfunctional gallbladder. 2. Ultrasound abdomen. No significant gallstones noted. 3. CT scan of the abdomen and pelvis. Minimally increasing in the size of left adrenal nodule. Trace ascites. Superficial bladder mass. Diverticulosis coli. 4. Chest x-ray. Left-sided Port-A-Cath. Low lung volumes. BRIEF HISTORY: Please see the H and P that was done on 09/22/2016. In brief, he is an 85-year- old white gentleman with above problems. Was admitted to the hospital from my office with upper abdominal pain, nausea and vomiting. Clinical exam is compatible with gallbladder disease. HOSPITAL COURSE: He had a substantial white cell count. Started on IV antibiotics. Initial ultrasound was negative for gallstone disease as well as CT scan of the abdomen and pelvis. HIDA scan was positive. Dr. Niño was consulted. He performed laparoscopic cholecystectomy. Intraoperative findings consistent with a gangrenous gallbladder. Was initially monitored in ICU. Subsequently was stable and transferred to the ICU in a stable condition. He was given perioperative antibiotics with Levaquin and daptomycin. Followup CBC came back normal. He has a substantial drainage in TONE drain and followup HIDA scan. No significant bile leak noted. Hospital course was prolonged due to mental confusion due to delirium requiring Ativan and Seroquel. Initial plan was going home with outpatient home healthcare. However family decided to send him for rehab for 21 days. LABORATORIES: CBC: White cell count 10 hematocrit 33 platelets 212,000. SMA 7: Sodium 140, potassium 4.6, chloride 100, BUN 10, creatinine 0.6, glucose 109. He has a slightly elevated total bilirubin and alkaline phosphatase. B12 levels were normal. Microbiology: All of the cultures were negative. Pathology report showed gallstones and inflammation. DISCHARGE INSTRUCTIONS: 1. Klonopin 0.5 at bedtime. Sulfasalazine 500, two tablets p.o. t.i.d., Synthroid 100 mcg daily, Celexa 20 daily, multivitamin 1 tablet daily, finasteride 5 mg daily, meclizine as needed, vitamin D 3000 units daily, Zofran as needed for nausea, Levaquin 500 daily for 7 days. 2. Will follow up with Dr. Niño next week. 3. Follow up with Dr. Robbins for Sandostatin for carcinoid syndrome. 4. Follow up with a Dr. Hussein for bladder cancer and BPH. cc: MD Agus Perez MD William E. Hughes, MD Hugh C. Nabers, MD
[2016-09-30] MEDS: CUBICIN (FOR INPATIENT USE) 600 MG in NS 100 ML IV SCH (10:29)
[2016-09-30] MEDS: VITAMIN D PO SCH (10:33)
[2016-09-30] MEDS: AZULFIDINE PO SCH (10:33)
[2016-09-30] MEDS: CENTRUM SILVER PO SCH (10:34)
[2016-09-30] MEDS: PROSCAR PO SCH (10:34)
[2016-09-30] MEDS: SYNTHROID PO SCH (10:34)
[2016-09-30] MEDS: CELEXA PO SCH (10:35)
[2016-09-30] MEDS: THIAMINE IM SCH (10:35)
[2016-09-30] MEDS: ANTIVERT PO SCH (10:47)
[2016-09-30] MEDS ORDERED: HEPARIN ONE (12:01)
== END 2016-09-30 12:15 ==
LOC: DIRADM 10:23 → 3N 12:04 → ICU 09-24 11:44 → 4N 09-25 14:19
PROVIDERS: ADMIT Internal Medicine; ATTEND Internal Medicine

== ENCOUNTER 2016-11-02 14:31 | Observation (INO) ==
[2016-11-02 18:05] LABS: ALLEN TEST NO; BE 1.7 mmoll (-3.0-3.0); BLOOD TYPE ARTERIAL; DRAW SITE R BRACHIAL; METHB 1.1 % (0.0-1.5); O2(CT) 14.6 mL/dL (15.0-23.0); PCO2(98.6) 42 mmHg (35-45); PO2(98.6) 84 mmHg (60-100); SAMPLE BLOOD; SAO2 96.3 % (95.0-100.0); THB 10.9 g/dL (11.5-17.4); pH(98.6) 7.41 (7.35-7.45)
[2016-11-02 18:06] LABS: MODALITY ROOM AIR
[2016-11-02 18:37] LABS: MANUAL DIFF NEEDED? NO
[2016-11-02 18:39] LABS: BASO% 0.6 % (0.0-0.8); EOS# 0.19 X1000 (0.0-0.7); EOS% 2.9 % (0.0-10.0); HEMATOCRIT 31.5 % (42.0-52.0); HEMOGLOBIN 9.8 g/dL (14.0-18.0); IMM GRAN# 0.05 X1000 (0.0-0.04); IMM GRAN% 0.8 % (0.0-0.5); LYMPH# 1.06 X1000 (1.2-3.4); LYMPH% 16.1 % (20.5-51.1); MCH 32.6 PG (27-31); MCHC 31.1 g/dL (33-37); MCV 104.7 FL (81-99); MONO# 0.86 X1000 (0.11-0.59); MONO% 13.1 % (1.7-9.3); MPV 10.1 FL (7.4-10.4); NEUT% 66.5 % (42.2-75.2); PLT 302 X1000 (130-400); RBC 3.01 XMIL (4.7-6.1)
[2016-11-02 18:49] LABS: INR 1.13
[2016-11-02 18:58] LABS: AGAP 12; ALBUMIN 3.5 g/dL (3.5-5.0); ALKALINE PHOSPHATASE 253 U/L (32-122); BUN 19 mg/dL (8-22); CHLORIDE 100 mmol/L (98-107); COSMO 278; GOT 57 U/L (10-34); GPT 66 U/L (10-44); POTASSIUM 4.2 mmol/L (3.5-5.1); SODIUM 138 mmol/L (136-145); TCO2 26 mmol/L (25-35); TOTAL BILIRUBIN 0.45 mg/dL (0.20-1.00); TOTAL PROTEIN 7.3 g/dL (6.3-8.3)
--- NOTE | 2016-11-02 19:18 | Diag Imaging Result Doc PS360 ---
EXAM: CHEST-2 VIEWS HISTORY: PLEURAL EFFUSION TECHNIQUE: COMPARISON: 09/25/2016 FINDINGS: There is a left-sided portacatheter. No pneumothorax. Heart is not enlarged. The vessels are not distended. There is a small right-sided pleural effusion with basilar atelectasis. No infiltrates. IMPRESSION: Small right pleural effusion with basilar atelectasis. Electronically signed by Alphonso Myers 11/02/2016 7:15 PM
--- NOTE | 2016-11-03 04:36 | HISTORY AND PHYSICAL ---
CHIEF COMPLAINT: I was called by home health nurse that he is getting shortness of breath. She told me on the phone yesterday, he has decreased breath sounds on the right side. As a result, he was asked to come to the office for evaluation. HISTORY OF PRESENT ILLNESS: He is an 86-year-old, white gentleman who recently had a laparoscopic cholecystectomy for acute cholecystitis by Dr. Joaquín Niño. He was sent to rehab. Subsequently, currently under home health care. Last admission, he has some delirium, mental confusion. He also had superficial bladder cancer with metastatic carcinoid syndrome. He has been under the care of Dr. Hussein and Dr. Robbins. Anyhow, he has decreased breath sounds in the right side. He is getting short of breath on exertional activities. At rest, he looks comfortable. Pulse oximetry 97%. Chest x-ray showed moderate right pleural effusion which is significant comparing with the previous exam. He has been hospitalized for the evaluation of new onset of right pleural effusion. As a result, he has been hospitalized. He denies of any PND, orthopnea, swelling of feet. Laboratory workup is in progress. I did discuss with Dr. Hussein. PAST MEDICAL HISTORY: BPH - status post TURP, superficial bladder cancer, metastatic bronchial carcinoid from the right upper lobe under the care of Dr. Martinez and also in [place], diverticulosis, hypertension, hypothyroidism, monoclonal gammopathy of unknown significance, osteoarthritis, ulcerative colitis. PAST SURGICAL HISTORY: Appendectomy, cholecystectomy, left hip replacement, bilateral cataract surgery, status post TURP, right knee arthroplasty, Port-A-Cath on the left side. MEDICATIONS: Sulfasalazine 500 two tablets p.o. t.i.d., Synthroid 100 mcg daily, Celexa 20 daily, multivitamin 1 tablet daily, finasteride 5 mg daily, vitamin D 3000 units daily, meclizine as needed. ALLERGIES: None known. 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 He lives in [place]. No smoking. No alcohol. No drug abuse. FAMILY HISTORY: Father of heart failure at 78. Mom of stroke at 82. HEALTH MAINTENANCE: Flu vaccine 2015, pneumococcal 2013, last prostate exam January 2016, colonoscopy 2012. REVIEW OF SYSTEMS: HEENT: No headache. No vision problem. No earache. No sore throat. Deafness. Cardiopulmonary: Shortness of breath on exertion. No PND. No orthopnea. No chest pain. No cough. GI: No nausea, vomiting, abdominal pain. : No history of hesitancy, frequency. Musculoskeletal: No swelling of feet. Chronic osteoarthritic pains. Neurologic: No focal symptoms or weakness or seizures. PHYSICAL EXAMINATION: VITAL SIGNS: He is afebrile. Vitals are stable. He is 5 feet 7 inches and 147 pounds. HEENT EXAMINATION: Not in respiratory distress. Atraumatic and normocephalic. Pupils equal, reactive to light. TMs are normal. Nose and throat within normal limits. NECK: Supple. No lymphadenopathy. No goiter. JVD is not elevated. RESPIRATORY: Decreased breath sounds in the right base. HEART: Heart sounds are regular. No gallop noted. No murmur. ABDOMEN: Belly is soft, nontender. Good bowel sounds. No masses palpable. EXTREMITIES: No peripheral edema, cyanosis. NEUROLOGIC: No obvious neurological deficits. INVESTIGATIONS: CBC: White cell count 6.5, hematocrit 32, platelets 302,000. PT 12, INR 1.1. ABG: PH is 7.41, pCO2 42, PO2 84. SMA 7 is normal. Increase of LFTs. Chest x-ray: Right moderate pleural effusion. ASSESSMENT AND PLAN: An 86-year-old, white male admitted to the hospital with shortness of breath on exertion due to moderate right pleural effusion which was not there in September 2016. Patient recently had laparoscopic cholecystectomy. PLAN: 1. Check the proBNP. 2. Ultrasound-guided thoracentesis. 3. Dr. Niño stand-by consult. 4. Elevated LFTs due to metastatic carcinoid syndrome, under the care of Dr. Robbins. 5. Reconcile home medications. 6. Follow up on the pending labs. 7. Discussed with the patient's as well as Dr. Niño. cc: Mumtaz Luque MD
--- NOTE | 2016-11-03 10:51 | Diag Imaging Result Doc PS360 ---
EXAM: THORAX/ABDOMEN/PELVIS INDICATION: lung and bladder ca, right pleural effusion TECHNIQUE: Dose reduction protocol was used. COMPARISON: CT chest dated 09/05/[address] abdomen and pelvis dated 09/23/2016. FINDINGS: CHEST: There has been interval development of a moderate to large size right pleural effusion. There is associated right lower lobe atelectasis. There are a few calcified granulomata. There are a few other tiny noncalcified nodules bilaterally that measure 4 mm less and are stable. For reference, one of the larger nodules is in the left lower lobe on image 50 of series 4 measures up to 3.8 mm. Statistically, these likely represent noncalcified granulomata. Nodularity and scarring in the inferior right upper lobe is unchanged. There are calcified mediastinal and hilar lymph nodes indicating prior granulomatous disease. There is no new lymphadenopathy, otherwise. ABDOMEN/PELVIS: There has been an interval recent cholecystectomy. There are calcified granulomata in the liver and spleen. There is a stable punctate hepatic hypodensity near the dome that probably represents a tiny cyst. No new hepatic mass is appreciated. The pancreas is unremarkable. There is a stable low dense left adrenal mass, statistically most likely an adenoma. There are stable bilateral renal cysts. There is extensive uncomplicated diverticulosis coli. There is no evidence of diverticulitis. The urinary bladder wall appears somewhat thickened but it is stable. Some of the pelvis is obscured by beam hardening artifact related to left hip arthroplasty. There is extensive aortoiliac atherosclerotic calcification but no evidence of aneurysm. IMPRESSION: 1.Interval development of moderate to large size right pleural effusion with adjacent atelectasis involving the right lower lobe. 2.Otherwise, the chest is stable as compared to the previous study. 3.Interval cholecystectomy. 4.Stable thickening of the urinary bladder wall. 5.Other incidental/nonacute findings detailed above that are unchanged. Electronically signed by Joey William 11/03/2016 10:49 AM
[2016-11-03] MEDS: AZULFIDINE PO SCH (21:37)
--- NOTE | 2016-11-03 21:58 | PROGRESS NOTE ---
DATE: 11/03/2016 SUBJECTIVE: The patient has no complaints, appears to not be in respiratory distress. OBJECTIVE: Vitals: Stable. HEENT: Within normal limits. Chest: Decreased breath sounds in the right base half way through, and also dull on percussion. Heart: Sounds are regular. Abdomen: Belly is soft, nontender. Good bowel sounds. LABORATORY: Sedimentation rate was 90, increased LFTs. CRP is 20. ProBNP was normal. ASSESSMENT AND PLAN: Moderate right pleural effusion on exam as well as chest x -ray. The patient has history of metastatic carcinoid in the liver at the hepatic dome. 1.8 cm lesion. Sandostatin treatment by Dr. Robbins. Plan is ultrasound-guided thoracentesis will be done by the radiologist after confirming in the CT of the chest which has been ordered by Dr. Niño. Plans are arranged for thoracentesis for Cytology and also look for transudate versus exudate. Based on that, further recommendations will be followed. In the meantime, continue present medical therapy. LEVEL OF DOCUMENTATION: 25 minutes. cc: Mumtaz Luque MD MTDD
[2016-11-04 06:24] LABS: MANUAL DIFF NEEDED? NO
[2016-11-04 06:26] LABS: BASO% 0.8 % (0.0-0.8); EOS# 0.15 X1000 (0.0-0.7); EOS% 2.3 % (0.0-10.0); HEMATOCRIT 33.4 % (42.0-52.0); HEMOGLOBIN 10.5 g/dL (14.0-18.0); IMM GRAN# 0.02 X1000 (0.0-0.04); IMM GRAN% 0.3 % (0.0-0.5); LYMPH# 0.76 X1000 (1.2-3.4); LYMPH% 11.4 % (20.5-51.1); MCH 32.3 PG (27-31); MCHC 31.4 g/dL (33-37); MCV 102.8 FL (81-99); MONO# 0.86 X1000 (0.11-0.59); MONO% 12.9 % (1.7-9.3); MPV 10.3 FL (7.4-10.4); NEUT% 72.3 % (42.2-75.2); PLT 309 X1000 (130-400); RBC 3.25 XMIL (4.7-6.1)
[2016-11-04 06:38] LABS: INR 1.16; PROTIME 12.3 Seconds (9.2-11.7); PTT 35.8 Seconds (22.0-36.0)
[2016-11-04 06:52] LABS: AGAP 15; BUN 17 mg/dL (8-22); CALCIUM 9.9 mg/dL (8.8-10.2); CHLORIDE 98 mmol/L (98-107); COSMO 279; POTASSIUM 4.6 mmol/L (3.5-5.1); SODIUM 139 mmol/L (136-145); TCO2 26 mmol/L (25-35)
--- NOTE | 2016-11-04 08:39 | Diag Imaging Result Doc PS360 ---
EXAM: CHEST-2 VIEWS INDICATION: POST THORA TECHNIQUE: 2 views (inspiratory/expiratory) COMPARISON: 11/02/2016 FINDINGS: There is no evidence of pneumothorax status post right thoracentesis. The lungs are now grossly clear. The right pleural effusion is nearly imperceptible status post thoracentesis, and there has been marked improvement in the aeration of the right lung base. The left chest port is in stable position. There are no new consolidations. Cardiac silhouette is stable. IMPRESSION: Marked improvement status post right thoracentesis with no evidence of postprocedural pneumothorax. Electronically signed by Joey William 11/04/2016 8:36 AM
[2016-11-04 09:01] LABS: SPECIMEN PLEURAL FLUID
--- NOTE | 2016-11-04 09:35 | Diag Imaging Result Doc PS360 ---
EXAM: THORACENTESIS W/IMAGE GUIDANCE INDICATION: PLEURAL EFFUSION TECHNIQUE: COMPARISON: None. FINDINGS: Risks, benefits, and alternatives were discussed with the patient and informed consent was obtained. The patient was prepped and draped in sterile fashion and local anesthesia was achieved with 1% lidocaine solution. Using ultrasound guidance, a large bore catheter was inserted into the right pleural space and 1400 mL of clear straw-colored serous fluid was aspirated. The sample was sent for laboratory analysis. There were no known complications. A chest radiograph after the procedure showed no pneumothorax. IMPRESSION: Technically successful ultrasound-guided right thoracentesis with no known complications. Electronically signed by Joey William 11/04/2016 9:33 AM
[2016-11-04 10:29] LABS: TOTAL PROT BODY FLUID 5.3 g/dL
[2016-11-04] MEDS: AZULFIDINE PO SCH (10:49)
[2016-11-04] MEDS: CENTRUM SILVER PO SCH ×2 (10:50→10:51)
[2016-11-04] MEDS: CELEXA PO SCH ×2 (10:50→10:51)
[2016-11-04] MEDS: PROSCAR PO SCH ×2 (10:50→10:51)
[2016-11-04] MEDS: SYNTHROID PO SCH ×2 (10:50→10:51)
[2016-11-04] MEDS: VITAMIN D PO SCH ×2 (10:50→10:51)
[2016-11-04 12:20] VITALS: BP 135/56
--- NOTE | 2016-11-05 19:24 | DISCHARGE SUMMARY ---
ADMISSION DATE: 11/02/2016 DISCHARGE DATE: 11/04/2016 DISCHARGING DIAGNOSIS: Shortness of breath due to right moderate pleural effusion, 1.5 L of transudate fluid. PH is 7.0. Cytology was pending. SECONDARY DIAGNOSES: 1. Metastatic carcinoid syndrome. Two lesions in the liver 1.8, under the care of Dr. Robbins from bronchial right upper lobe carcinoid. 2. BPH. 3. Superficial bladder cancer. 4. Diverticulosis. 5. Hypertension. 6. Hypothyroidism. 7. Monoclonal gammopathy of unknown significance. 8. Osteoarthritis. 9. Ulcerative colitis. 10. Port-A-Cath on the left side. CONSULTS: Dr. Joaquín Niño. PROCEDURES: Ultrasound-guided thoracentesis by Dr. William. Drained 1.4 yellowish transudate fluid. BRIEF HISTORY: Please see the H and P that was done on 11/02/2016. In brief he is an 88-year- old, white gentleman, recently had a laparoscopic cholecystectomy for gangrenous gallbladder due to gallstone disease. Recovering as an outpatient after rehab who was admitted to the hospital with shortness of breath, with moderate pleural effusion by clinical exam as well as chest x-ray. The findings were corroborated by CT of the chest. On the following day, the patient had ultrasound-guided thoracentesis with 1.5 L of transudate fluid. Followup chest x-ray completely better. No complications noted. Results were discussed with the patient and cytology was pending. LABS: CBC, white cell count 6.6, hematocrit 33, platelets 319,000. PT 12, INR 1.1. ABG, pH is 7.41, pCO2 42, PO2 84 on room air. SMA 7 was normal. Increased LFTs, AST, ALT. Alkaline phosphatase. CRP 20. Cardiac enzymes, ProBNP were normal and pleural fluid pH is 7.0, total protein 5.3, glucose 87, LDH 200. DISCHARGE INSTRUCTIONS ARE FOLLOWS: Pneumococcal vaccine 2013. Sulfasalazine 500, two tablets p.o. t.i.d. Synthroid 100 mcg daily. Celexa 20 daily. Multivitamin 1 tablet daily. Finasteride 5 mg daily. Vitamin D 3000 units daily. Meclizine as needed. Follow up in my office in next week for repeat the chest x-ray. cc: Mumtaz MD Joaquín Luque MD Naveen T. Lobo, MD
== END 2016-11-04 13:42 | disposition home health service (06) ==
LOC: INTOOBSV 14:31 → DIRADM 14:31 → 3N 15:06
PROVIDERS: ADMIT Internal Medicine; ATTEND Internal Medicine